=== PATIENT | male | born 1965 | race Caucasian/White ===

== ENCOUNTER → 2018-03-17 14:59 | Outpatient (CLI) | payer BC, SELFPAY ==
--- NOTE | 2018-03-17 15:01 | XR_ITS ---
XR finger LT min 2V CLINICAL INDICATION: ITS.REASON: MIDDLE LT BRENNA KELLY FINGER ORDERING PHYSICIAN: Carroll Pugh MD PATIENT AGE: 53 years FINDINGS: 3 views are obtained with an overlying splint in place with good alignment and no obvious fracture or other significant anomalies. Finger is fixed in extension. IMPRESSION: Splint in place otherwise negative
== END ==
PROVIDERS: PCP Family Medicine; Visit Provider Orthopaedic Surgery
DX: M20.012 Mallet finger of left finger(s) (principal)
CPT/HCPCS: 73140

== ENCOUNTER → 2021-07-06 08:25 | Outpatient (CLI) | payer BC, SELFPAY | PROVIDERS: Visit Provider Internal Medicine Gastroenterology | DX: Z01.812 Encounter for preprocedural laboratory examination (principal); Z11.52 Encounter for screening for COVID-19; Z13.810 Encounter for screening for upper gastrointestinal disorder; Z12.11 Encounter for screening for malignant neoplasm of colon | CPT/HCPCS: U0003 ==

== ENCOUNTER 2021-07-08 09:47 | Day surgery (SDC) | payer BC, SELFPAY ==
[2021-07-03 12:54] VITALS: BMI 29.1
[2021-07-08 10:20] VITALS: BP 131/79; PULSE 83; RESP 16; TEMP 36.4; O2SAT 96
[2021-07-08 11:13] VITALS: O2SAT 100
--- NOTE | 2021-07-08 11:15 | P.PN_ITS ---
[facility] Anesthesia Checklist - Patient Identification Patient Identification: Arm Band - Structural Data Admitted From: Home Planned Operative Procedure/s: egd/colonoscopy Consent for Planned Operative Procedure(s) Verified: Yes Verified Documents: Surgical Consent, History and Physical - NPO Status Verified Time NPO: 00:00 - Additional verifications Anesthesia Reactions: No - Airway Assessment C-Spine Mobility Assessed: Yes (mp2) TMJ Mobility Assessed: Yes Dentition: Good Dentition - Neurological Assessment Level of Consciousness: Awake, Alert - Anesthesia Plan Anesthesia Risk discussed: Yes Anesthesia Plan: Verified ASA Class: II Anesthesia Type: MAC [facility] History I have reviewed the patient's past medical history: Yes Medical History: Reports:: Gastroesophageal Reflux Disease(GERD), Hypertension Denies:: Cancer, Diabetes Mellitus Type 1, Diabetes Mellitus Type 2, Internal Pacemaker, MRSA, Seizures *Have you ever received a pneumonia vaccine?: No *Have you received a flu vaccine this season?: No Anesthesia experience/problems:: nac Laterality Cases: Right: Arthroscopy Knee Other Surgeries: Yes: Sinus Surgery. No: Pacemaker Amputation: No Fractures: No - *Social History Last grade of school completed: Some college Smoking Status: Current every day smoker Tobacco Type: smokeless tobacco # Packs/Day (cigarettes): 2 Alcohol Intake: current Alcohol Intake Frequency:: a few times a week Substance Use Type: denies use *Occupational Status:: employed Housing: house Household Members: spouse, children *Travel in the last 8 weeks: Inside the [facility] Family Hx:: Coronary Artery Disease, Diabetes, Hypertension
--- NOTE | 2021-07-08 11:33 | HMH.PROC ---
[facility] Procedure Note Procedure Note:: Upper Endoscopy Procedure Report: Esophagogastroduodenoscopy with cold biopsies Endoscopost: Bright Webster II, MD Referring Physician: NINFA Heard Date of Procedure: July 08, 2021 Equipment: Olympus GIF 190 standard upper endoscope Sedation: MAC sedation Indications: Mr. Campos is a 56-year-old gentleman with chronic intermittent reflux for which he has taken lansoprazole a couple of times per month. He reports no daily heartburn or reflux. He reports no indigestion, bloating, epigastric discomfort or dyspepsia. He has had no dysphagia. This is his first upper endoscopy. Procedure: Prior to the procedure, a history and physical exam was performed, and patient's medications and allergies were reviewed. The risks, benefits and alternatives of the sedation and procedure were discussed with the patient. All questions were answered and informed consent was obtained. The patient was brought to the procedure room. Patient identification and proposed procedure were verified by the physician and the nurse. The patient was placed in a left lateral decubitus position and the scope was passed under direct vision. Throughout the procedure, the patient's blood pressure, pulse, and oxygen saturations were monitored continuously. The upper GI endoscopy was accomplished without difficulty. The patient tolerated the procedure well. Findings: The scope was passed directly into the upper esophagus and advanced to the third portion of the duodenum. The post bulbar duodenum and duodenal bulb were normal with normal mucosa and conniventes. The scope was withdrawn through a normal duodenal bulb and pylorus into the stomach. There was mild antral reactive gastropathy with bile reflux. The remainder of the body and fundus of the stomach were grossly normal. Upon retroflexion there was a very small sliding 1 to 2 cm hiatal hernia. 2 biopsies were taken in the antrum and along the lesser curvature for histology to rule out gastritis and/or H pylori. The scope was then withdrawn into the esophagus. There was grade A reflux esophagitis (LA classification). Biopsies were taken at the GE junction to rule out intestinal metaplasia. The remainder of the esophageal mucosa was normal. Impression: 1. Grade A reflux esophagitis (LA classification) with small sliding hiatal hernia 2. Bile reflux with mild reactive gastropathy Plan: The patient does have mild reflux esophagitis. I will follow-up the biopsies and if his biopsies of the GE junction confirm intestinal metaplasia, I would consider a long-term daily low-dose PPI therapy (omeprazole 20 mg p.o. daily) for complicated GERD. I will proceed with screening colonoscopy.
--- NOTE | 2021-07-08 11:53 | HMH.PROC ---
[facility] Procedure Note Procedure Note:: Colonoscopy Procedure Report: Colonoscopy with cold snare polypectomy Endoscopist: Bright Webster II, MD Referring physician: NINFA Heard Date of Procedure: July 08, 2021 Equipment: Olympus 190 variable stiffness pediatric colonoscope Sedation: MAC sedation Indication: Mr. Campos is a 56-year-old gentleman who is here for initial screening colonoscopy. He reports no abdominal pain, weight loss, change in his bowel habits or rectal bleeding. He reports no family history of colon cancer. He does state that his [id number] (not genetic relation) has colon cancer. Procedure: Prior to the procedure, a history and physical exam was performed, and patient's medications and allergies were reviewed. The risks, benefits and alternatives of the sedation and procedure were discussed with the patient. All questions were answered and informed consent was obtained. The patient was brought to the procedure room. Patient identification and proposed procedure were verified by the physician and the nurse. The patient was placed in a left lateral decubitus position and the scope was passed under direct vision. Throughout the procedure, the patient's blood pressure, pulse, and oxygen saturations were monitored continuously. The colonoscopy was accomplished without difficulty. The patient tolerated the procedure well. Findings: On digital rectal examination there was normal rectal tone. There were no external hemorrhoids. The prostate was 2+, mildly firm but symmetric without nodules. The colonoscope was introduced through the anal canal to the rectum and advanced to the cecum. The ileocecal valve and appendiceal orifice were identified. The scope was advanced a short distance into the ileum which appeared grossly normal. The scope was then withdrawn into the colon. The cecum, ascending and transverse colon and mucosa were grossly normal. There was a diminutive 3 to 4 mm polyp in the descending colon removed via cold snare polypectomy. There were mildly scattered diverticuli throughout the descending and sigmoid colon (LEFT colon). The rectum itself was normal. Upon retroflexion within the rectum there were grade 1-2 internal hemorrhoids. The preparation was excellent throughout with [place] Preparation Score of 9. The cecal time was 12 minutes. Impression: 1. Diminutive descending colon polyp 2. Mild left-sided diverticulosis 3. Grade 1-2 internal hemorrhoids Plan: I will follow up the polyp pathology and recommend repeat colonoscopy again in 7-10 years based upon the polyp histology. I would encourage bulking fiber supplementation (Metamucil) on a long-term daily maintenance basis.
[2021-07-08 11:55] VITALS: BP 106/69; PULSE 82; RESP 18; TEMP 36.6; O2SAT 94
[2021-07-08 12:05] VITALS: BP 118/76; PULSE 85; RESP 18; O2SAT 95
[2021-07-08 12:15] VITALS: BP 109/79; PULSE 72; RESP 18; O2SAT 95
[2021-07-08 12:28] VITALS: BP 113/76; PULSE 80; RESP 18; O2SAT 96
== END 2021-07-08 12:38 | disposition home or self-care (01) ==
LOC: OUTP 09:48
PROVIDERS: PCP Nurse Practitioner Family; Visit Provider Internal Medicine Gastroenterology
PROC: 0DJ08ZZ Inspection of Upper Intestinal Tract, Via Natural or Artificial Opening Endoscopic (ICD-10-PCS; CPT 43235; principal; 2021-07-08 11:00)
DX: Z12.11 Encounter for screening for malignant neoplasm of colon (principal); K21.00 Gastro-esophageal reflux disease with esophagitis, without bleeding; K31.9 Disease of stomach and duodenum, unspecified; K44.9 Diaphragmatic hernia without obstruction or gangrene; K63.5 Polyp of colon; K57.32 Diverticulitis of large intestine without perforation or abscess without bleeding; K64.0 First degree hemorrhoids; I10 Essential (primary) hypertension; Z72.0 Tobacco use; Z83.3 Family history of diabetes mellitus; Z82.49 Family history of ischemic heart disease and other diseases of the circulatory system; Z79.899 Other long term (current) drug therapy
CPT/HCPCS: 43239; 45385

== ENCOUNTER → 2022-04-23 12:34 | Outpatient (CLI) | payer BC, SELFPAY ==
--- NOTE | 2022-04-23 12:39 | XR_ITS ---
FINAL REPORT CLINICAL HISTORY: knee pain, hx meniscus surgery FINDINGS: RIGHT KNEE: Three views of the right knee were obtained. There is no acute fracture or dislocation. There are mild degenerative changes. There is no joint effusion. Soft tissues are unremarkable. IMPRESSION: Mild degenerative change. Reviewed, Interpreted and Dictated by Parker Copeland III, MD Transcribed by Jaun Redmond Authenticated and . [facility]
== END ==
PROVIDERS: PCP Nurse Practitioner Family; Visit Provider Nurse Practitioner Family
DX: M25.561 Pain in right knee (principal)
CPT/HCPCS: 73562

== ENCOUNTER → 2022-04-30 08:41 | Outpatient (CLI) | payer BC, SELFPAY ==
--- NOTE | 2022-04-30 08:42 | MR_ITS ---
FINAL REPORT CLINICAL HISTORY: right lateral knee pain. hx meniscus sx 15 years ago FINDINGS: Multiplanar MR imaging of the right knee was performed without contrast. There is postoperative change from partial medial meniscectomy. There is a probable small tear involving the posterior horn of the lateral meniscus. Finding is well seen on series 4, image 11. There is fluid in the anterior cruciate ligament, may represent mucinous degeneration. The posterior cruciate ligament is intact. The medial collateral ligament and lateral ligamentous complex are intact. The patellar and quadriceps tendons are intact. There are small osteochondral lesions of the medial femoral condyle and medial tibial plateau. There is mild degenerative change with moderate to severe medial compartment chondromalacia. Small joint effusion is seen. The musculature is intact. Small popliteal cyst is identified. IMPRESSION: Probable small tear posterior horn lateral meniscus. Degenerative change and chondromalacia. Osteochondral lesions of the medial femoral condyle and medial tibial plateau. Reviewed, Interpreted and Dictated by Parker Copeland III, MD Transcribed by Stephie Peng Authenticated and [facility]
== END ==
PROVIDERS: PCP Nurse Practitioner Family; Visit Provider Nurse Practitioner Family
DX: M25.561 Pain in right knee (principal)
CPT/HCPCS: 73721

== ENCOUNTER → 2022-05-19 08:38 | Outpatient (CLI) | payer BC, SELFPAY ==
--- NOTE | 2022-05-19 09:01 | ECG_ITS ---
APPROVED REPORT Exam: Resting ECG HR:65 bpm ECG Measurements Heart Rate 65 AXES MD 111 P 65 QRSd 99 QRS 69 QT 391 T 37 QTc 402 Conclusion SINUS RHYTHM WITH SHORT MD INTERVAL BORDERLINE ECG UNCONFIRMED REPORT Electronically signed by : Giovanni Mendoza MD 05/19/2022 21:43:31
[2022-05-19 09:12] LABS: Basophils # 0.2 K/mm3 (0-0.2); Basophils % 2.8 % (0.1-2.0); Eosinophils # 0.1 K/mm3 (0.0-0.4); Eosinophils % 1.7 % (0.1-12.0); Hemoglobin 14.9 g/dL (14.1-18.0); Lymphocytes % 16.6 % (10-50); Mean Corpuscular HGB Conc 31.8 g/dL (31.8-35.4); Mean Corpuscular Hemoglobin 33.2 pg (27.0-31.2); Mean Corpuscular Volume 104.5 fl (80-94); Mean Platelet Volume 8.1 fl (7.4-10.4); Monocytes # 0.4 K/mm3 (0.1-1.0); Monocytes % 7.3 % (1.7-9.3); Neutrophils # 4.2 K/mm3 (1.8-7.8); Neutrophils % 71.5 % (37.0-80.0); Platelet Count 305 K/mm3 (142-424); Red Blood Count 4.49 M/mm3 (4.60-6.20); Red Cell Distribution Width 12.8 % (11.5-17.5); White Blood Count 5.8 K/mm3 (4.8-10.8)
[2022-05-19 09:29] LABS: Chloride 103 mmol/L (98-107); Potassium 4.2 mmoL/L (3.5-5.1); Sodium 138 mmol/L (136-145)
[2022-05-19 09:32] LABS: Anion Gap 10.2 mEq/L (5-15); Blood Urea Nitrogen 17 mg/dl (9-20); Carbon Dioxide 29 mmol/L (22.0-30.0); Estimated Glomerular Filt Rate 87 ml/min (>60); GFR (African American) 106 ML/MIN (>60)
[2022-05-19 09:33] LABS: Calcium 9.4 mg/dl (8.4-10.2); Glucose 109 mg/dl (74-100)
== END ==
PROVIDERS: PCP Nurse Practitioner Family; Visit Provider Orthopaedic Surgery
DX: Z01.818 Encounter for other preprocedural examination (principal); Z20.822 Contact with and (suspected) exposure to COVID-19
CPT/HCPCS: 36415; 80048; 85025; 93005; C9803; U0003; U0005

== ENCOUNTER 2024-02-18 11:04 | Outpatient (CLI) | payer BC, SELFPAY ==
--- NOTE | 2024-02-18 11:10 | XR_ITS ---
FINAL REPORT CLINICAL HISTORY: LOW BACK PAIN COMPARISON: None FINDINGS: LUMBOSACRAL SPINE SERIES Five views of the lumbosacral spine were obtained. There is no fracture present. The vertebrae are normal in height. There is no malalignment. There is mild disc space narrowing at L2-3. There is mild anterior osteophyte formation. IMPRESSION: Mild degenerative changes without acute process. Reviewed, Interpreted and Dictated by Denny Nunez MD Transcribed by Laine Jackson Authenticated and . [facility]
== END 2024-02-18 23:59 ==
LOC: RAD 11:07
PROVIDERS: PCP Nurse Practitioner Family; Visit Provider Nurse Practitioner Family
DX: M54.50 Low back pain, unspecified (principal)
CPT/HCPCS: 72110

== ENCOUNTER 2024-11-03 07:14 | Outpatient (CLI) | payer BC, SELFPAY ==
--- NOTE | 2024-11-03 07:16 | MR_ITS ---
FINAL REPORT CLINICAL HISTORY: LOW BACK PAIN. RIGHT HIP PAIN. NO INJURT OR TRAUMA FINDINGS: Multiplanar MR imaging of the lumbar spine was performed without contrast. On the sagittal T2-weighted images, multilevel disc degeneration and endplate changes are seen. There is mild rightward curvature. There is no evidence of fracture. No bony mass is identified. The conus is seen at approximately the L1 level and has an unremarkable appearance. T12-L1: Unremarkable. L1-2: There is an annular disc bulge without significant canal stenosis or neural foraminal narrowing. L2-3: Annular disc bulge with facet arthropathy and osteophytes. There is moderate bilateral neuroforaminal narrowing. L3-4: Annular disc bulge with facet arthropathy and osteophytes. There is moderate bilateral neuroforaminal narrowing. L4-5: Annular disc bulge with facet arthropathy. There is severe bilateral neuroforaminal narrowing. Moderate central canal stenosis is seen with AP diameter of the thecal sac measuring 6 mm. L5-S1: Annular disc bulge with facet arthropathy. There is partial lumbarization of S1 and severe bilateral neuroforaminal narrowing. A 5 mm synovial cyst is seen posterior to the facet joint on the left. IMPRESSION: Severe bilateral neuroforaminal narrowing and moderate central canal stenosis at L4-5. 5 mm synovial cyst posterior to the facet joint on the left at L5-S1 where there is partial embolization and severe bilateral neuroforaminal narrowing. Reviewed, Interpreted and Dictated by Parker Copeland III, MD Transcribed by Stacy Craft Authenticated and . [facility]
== END 2024-11-03 23:59 | disposition home or self-care (01) ==
LOC: RAD 07:14
PROVIDERS: PCP Nurse Practitioner Family; Visit Provider Nurse Practitioner Family
DX: M54.50 Low back pain, unspecified (principal)
CPT/HCPCS: 72148

== ENCOUNTER 2024-11-21 16:30 | Outpatient (RCR) | payer BC, SELFPAY | END 2024-11-21 23:59 | disposition home or self-care (01) | LOC: PT 16:30 | PROVIDERS: Visit Provider Neurological Surgery | DX: M54.16 Radiculopathy, lumbar region (principal) | CPT/HCPCS: 97110; 97163; 97530 ==

== ENCOUNTER 2024-12-22 09:00 | Outpatient (RCR) | payer BC, SELFPAY | END 2024-12-22 23:59 | disposition home or self-care (01) | LOC: PT 09:00 | PROVIDERS: Visit Provider Neurological Surgery | DX: M54.16 Radiculopathy, lumbar region (principal) | CPT/HCPCS: 97110; 97140; 97164; 97530 ==

== ENCOUNTER 2025-01-03 09:00 | Outpatient (RCR) | payer BC, SELFPAY | END 2025-01-03 23:59 | disposition home or self-care (01) | LOC: PT 09:00 | PROVIDERS: Visit Provider Neurological Surgery | DX: M54.16 Radiculopathy, lumbar region (principal) | CPT/HCPCS: 97110; 97530 ==

== ENCOUNTER 2025-02-23 09:11 | Outpatient (POV) | payer BC, SELFPAY ==
[2025-02-23 10:09] VITALS: BP 142/87; PULSE 82; RESP 18; O2SAT 96; BMI 29.8
--- NOTE | 2025-02-23 10:46 | EXP.PAIN.OV ---
HPI Data of Consult Patient: new to practice Consult date: 02/23/25 Requesting Physician: Sylvia Holden APRN Primary Care Provider: Demarcus Campos APRN Consult Narrative Reason for consult: Low back pain, hip pain History of present illness: Mr. Campos is a 60 year old male who presents today as a new patient. He is a referral from demarcus Campos's office. Today he rates his pain an 8 out of 10. Patient does state that he has had chronic low back pain that does primarily affect the right hip for longer than a year. He does believe this was more wear and tear and denies any specific injury or trauma. He does state that it is an aching sensation and denies any radiating symptoms into his legs. He states the pain is worse with standing or bending. He states the pain does interfere with his ability perform activities of daily living such as cooking and cleaning. Patient did complete physical therapy however it made no additional improvement. Patient was seen by neurosurgery in [place] who was not recommending surgical intervention. Patient has also gone to the chiropractor on a regular basis and does state this helps but typically only last about a day. Patient has tried oral medications, heat and ice and topicals with minimal improvement. Patient has also continued home stretching and exercise for longer than 12 weeks that was physician guided with no additional changes. Patient denies any prior back surgery or injection history. Patient is interested in any help we may be able to provide. His Roderick has been reviewed and is appropriate. CC: Sylvia Holden APRN [facility] Disclaimer: The information contained in this section may have been updated after the patient was seen, as this information can be updated by other users. Medical History (Updated 02/23/25 @ 10:49 by Sylvia Holden APRN) HTN (hypertension), benign GERD (gastroesophageal reflux disease) Surgical History (Updated 02/23/25 @ 10:11 by Coby Walter RN) H/O sinus surgery H/O right knee surgery Family History (Updated 02/23/25 @ 10:11 by Coby Walter RN) Other Coronary artery disease Diabetes Hypertension Social History (Updated 02/23/25 @ 10:12 by Coby Walter RN) Smoking Status: Current every day smoker tobacco type: smokeless tobacco alcohol intake: current alcohol intake frequency: a few times a week substance use type: denies use current occupational status: retired Travel in the last 8 weeks: None household members: spouse and children housing: house current occupation: [employer] caffeine: Yes Contact w/someone who lives/traveled outside [place] past 30 days?: No Exposure to someone with infectious disease in past 14 days?: No Do you have a fever (greater than 100.4 F or 38 C)?: No Have you tested positive for COVID-19: No Exposed to someone with COVID-19 in past 14 days?: No Do you have a sore throat?: No Do you have a cough?: No Do you have any weakness?: No Are you experiencing any nausea/vomitting?: No Do you have any diarrhea?: No Are you experiencing any unusual bleeding?: No Do you have any muscle aches/pain?: No Do you have any abdominal pain?: No Are you experiencing loss of taste or smell?: No Review of Systems Review of Systems Review of systems:: pertinent systems reviewed and negative unless documented below Review of systems (narrative): Review of Systems: General: No recent weight changes, no fever, no sleep disturbances Respiratory: No cough, no shortness of air, no recurring pulmonary infections Cardiovascular/peripheral vascular: No chest pain, no palpitations, no edema, no shortness of breath Gastrointestinal: No new onset incontinence, normal bowel movements reported Genitourinary: No new onset incontinence Musculoskeletal: Low back pain, hip pain Psychiatric: [Normal mood/affect] Neurological: [Denies weakness in extremities], [denies balance issues] Meds Home Medications and Allergies Home Medications ?Medication ?Instructions ?Recorded ?Confirmed ?Type lansoprazole 30 mg capsule,delayed 30 mg PO DAILY GERD 04/24/21 02/23/25 History release ramipril 5 mg capsule 5 mg PO DAILY bp #90 caps 05/09/21 02/23/25 Rx fluticasone propionate 50 1 spray intranasal QDAY #9.9 mL 08/07/21 02/23/25 Rx mcg/actuation nasal spray,suspension (Flonase Allergy Relief) New Prescriptions to Start Prescriptions: Allergies Allergy/AdvReac Type Severity Reaction Status Date / Time No Known Allergies Allergy Verified 04/23/22 10:59 Objective Vital signs: Pulse Resp BP Pulse Ox O2 Del Method 82 18 142/87 H 96 Room Air 02/23/25 10:02/23/25 10:02/23/25 10:02/23/25 10:02/23/25 10:09 Narrative: Physical Exam: General: Alert and oriented x3, no acute distress, pleasant and cooperative Lungs: Respirations even and unlabored, symmetrical chest expansion Eyes: PERRL Musculoskeletal: Flexion and extension of lumbar [spine] somewhat guarded secondary to pain, [antalgic gait noted] positive Kemps test Neurological: Speech clear, no gross sensory deficit Additional findings Additional findings: FINDINGS: Multiplanar MR imaging of the lumbar spine was performed without contrast. On the sagittal T2-weighted images, multilevel disc degeneration and endplate changes are seen. There is mild rightward curvature. There is no evidence of fracture. No bony mass is identified. The conus is seen at approximately the L1 level and has an unremarkable appearance. T12-L1: Unremarkable. L1-2: There is an annular disc bulge without significant canal stenosis or neural foraminal narrowing. L2-3: Annular disc bulge with facet arthropathy and osteophytes. There is moderate bilateral neuroforaminal narrowing. L3-4: Annular disc bulge with facet arthropathy and osteophytes. There is moderate bilateral neuroforaminal narrowing. L4-5: Annular disc bulge with facet arthropathy. There is severe bilateral neuroforaminal narrowing. Moderate central canal stenosis is seen with AP diameter of the thecal sac measuring 6 mm. L5-S1: Annular disc bulge with facet arthropathy. There is partial lumbarization of S1 and severe bilateral neuroforaminal narrowing. A 5 mm synovial cyst is seen posterior to the facet joint on the left. IMPRESSION: Severe bilateral neuroforaminal narrowing and moderate central canal stenosis at L4-5. 5 mm synovial cyst posterior to the facet joint on the left at L5-S1 where there is partial embolization and severe bilateral neuroforaminal narrowing. Reviewed, Interpreted and Dictated by Parker Copeland III, MD Transcribed by Stacy Craft Authenticated and . [facility] Assessment and Plan *Assessment and plan (1) Degenerative disc disease, lumbar: Status: Acute Category: Medical Code(s): M51.369 - Other intervertebral disc degeneration, lumbar region without mention of lumbar back pain or lower extremity pain (2) Lumbar facet arthropathy: Status: Acute Category: Medical Code(s): M47.816 - Spondylosis without myelopathy or radiculopathy, lumbar region (3) Lumbar spondylosis: Status: Acute Category: Medical Code(s): M47.816 - Spondylosis without myelopathy or radiculopathy, lumbar region (4) Hip pain: Status: Acute Category: Medical Code(s): M25.559 - Pain in unspecified hip Plan Patient is experiencing significant pain in his low back that is worse with bending, twisting or lifting. Patient did have limited range of motion of his lumbar spine with a positive Kemps test during today's visit. I did discuss with the patient that I do believe he would benefit from a lumbar medial branch block. Risk and benefits were discussed with the patient and he would like to proceed forward with this plan of care. Patient has tried and failed conservative therapy including oral medications, heat and ice, topicals, at home stretching exercise for longer than 12 weeks that was physician guided. Patient has also completed physical therapy and chiropractor therapy with no additional changes patient has been experiencing chronic low back pain for years. Patient was counseled that if he does get significant relief with his first lumbar medial branch block that we will plan on repeating it with the plan to progress forward to a lumbar RFA at a later date. Patient agrees with this plan of care. I will order the patient a compounded cream. Patient will be scheduled for his first diagnostic lumbar medial branch block bilaterally L4-L5 and 5 through S1 under fluoroscopy. Patient has been instructed to contact the clinic with any concerns before the next appointment. Dr. Veliz has reviewed this note and agrees with this plan of care. This note was dictated using voice recognition software and make contain errors or omissions. All injections are used with Lidocaine, Bupivacaine and Depo Medrol. Occasionally urine drug screen is needed to verify patient's compliance with our office pain contract. This is ordered based off specific treatments related to chronic pain with the potential to abuse certain medications.
== END 2025-02-23 23:59 | disposition home or self-care (01) ==
LOC: SC.PAIN 09:13
PROVIDERS: PCP Nurse Practitioner Family; Visit Provider Nurse Practitioner Family
DX: M51.369 Other intervertebral disc degeneration, lumbar region without mention of lumbar back pain or lower extremity pain (principal); M47.816 Spondylosis without myelopathy or radiculopathy, lumbar region; M25.559 Pain in unspecified hip; Z73.89 Other problems related to life management difficulty; F17.220 Nicotine dependence, chewing tobacco, uncomplicated
CPT/HCPCS: 99202; G0463

== ENCOUNTER 2025-03-21 13:26 | Day surgery (SDC) | payer BC, SELFPAY ==
[2025-03-21 13:30] VITALS: BP 141/80; PULSE 84; RESP 16; TEMP 36.8; O2SAT 97; BMI 29.9
[2025-03-21 13:39] VITALS: BP 141/88; PULSE 72; PULSE 75; RESP 18; O2SAT 97
[2025-03-21] MEDS: LIDOCAINE 1% 5ML PF VIAL 5 ML (13:45)
[2025-03-21] MEDS: DEXAMETHASONE 10MG/ML 1ML VIAL 10 MG (13:45)
[2025-03-21] MEDS: BUPIVACAINE 0.25% 10ML INJ 25 MG IJ (13:46)
--- NOTE | 2025-03-21 13:55 | EXP.PAIN.PRO ---
Procedure Date: 03/21/25 Time: 13:50 Anesthesiologist:: Mateus Woodall CRNA Complications:: None Pre-procedure Diagnosis:: Degenerative disc lumbar spine multilevels. Lumbar radiculopathy. Lumbar facet arthropathy. Lumbar spondylosis. Post-procedure Diagnosis:: Same. Indications for Procedure:: Patient is a very pleasant 60-year-old male who comes our clinic today for ROUND ONE of lumbar medial branch blocks/facet injections of bilateral L4-5, L5-S1 level. Patient describes low lumbar back pain as constant, dull, aching. He reports difficulty with lumbar flexion, extension, left and right rotation. He rates his pain 7/10. Procedure Details:: Informed consent was obtained and the risk and benefits of the procedure was explained to the patient. Patient was taken to the procedure room where noninvasive monitors were placed, including noninvasive blood pressure cuff as well as pulse oximeter. The area over the lumbar spine was cleansed using chlorhexidine as a cleansing solution. I anesthetized the skin and subcutaneous tissues with 1% Lidocaine. I placed 22-gauge spinal needles into the facet joint/ medial branches of [L3-L4, L4-L5, and L5-S1] bilaterally. Needle placement was confirmed with fluoroscopy. After confirmation of needle placement, each site was injected with 1 mL of 1% lidocaine and 0.25 % Marcaine and 10 mg of Depo-Medrol. A total of 80 mg of depo medrol was used for bilateral medial branch blocks of [L3-L4, L4-L5, and L5-S1] bilaterally. Patient tolerated the procedure without difficulty. There were no complications. Plan and Disposition:: Patient was discharged without incident.
[2025-03-21 14:02] VITALS: BP 136/83; PULSE 73; RESP 16; O2SAT 98
== END 2025-03-21 14:02 | disposition home or self-care (01) ==
PROVIDERS: PCP Nurse Practitioner Family; Visit Provider Nurse Anesthetist, Certified Registered
DX: M47.816 Spondylosis without myelopathy or radiculopathy, lumbar region (principal); M51.369 Other intervertebral disc degeneration, lumbar region without mention of lumbar back pain or lower extremity pain
CPT/HCPCS: 64493; 64494; J1100

== ENCOUNTER 2025-04-06 11:16 | Outpatient (POV) | payer BC, SELFPAY ==
--- OUTSIDE RECORDS SUMMARY | 2025-04-06 11:19 | XMS_ITS | Data Portability ---
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 I studied his MRI L-spine from 11/03/2024, which reveals degenerative changes with central/lateral recess stenosis at L3/4 and severe bilateral L4/5 foraminal stenosis. These findings could certainly lead to radicular or pseudoclaudication symptoms, but he has isolated low back and right hip pain. Given the lack of significant radicular or pseudoclaudication symptoms, no surgery is indicated right now. I discussed this with him and discussed other conservative treatments, starting with physical therapy. Answered all of his questions. He seems pleased with the plan. I provided a referral for physical therapy. I discussed that he should return if he develops radicular or pseudoclaudication symptoms. [email or web address] Not available 11/09/2024 08:59:21 Plan of Treatment Reminders Order Date Submit Date Provider Last Modified By Organization Details Last Modified Time Details Appointments None record ed. Lab None record ed. Referral None record ed. Procedures None record ed. Surgeries None record ed. Imaging None record ed. Medication Orders None record ed. Patient TargetsNo targets recorded. Patient InstructionsNo instructions recorded. Reason for Referral None Reported. Medical Equipment None Reported. Allergies No known drug allergies Medications Name Sig Start Date Stop Date Status Note LastModified by Organization Details LastModified Time azithromyci n 250 mg tablet TAKE 2 TABLETS (500 MG) BY ORAL ROUTE ONCE DAILY FOR 1 DAY THEN 1 TABLET (250 MG) BY ORAL ROUTE ONCE DAILY FOR 4 DAYS 02/15 completed Not Available Not Available Not Available prednisone 20 mg tablet Take 1 tablet twice a day by oral route for 5 days. 04/14 completed Not Available Not Available Not Available hydrocodone 10 mg-acetamin ophen 325 mg tablet 07/22 completed Not Available Not Available Not Available dexamethaso ne sodium phosphate 4 mg/mL injection solution Inject 1 mL every day by intramusc ular route. 02/15 completed Not Available Not Available Not Available fluticasone propionate 50 mcg/actuati on nasal spray,suspe nsion 07/22 completed Not Available Not Available Not Available ramipril 5 mg capsule TAKE 1 CAPSULE BY MOUTH EVERY DAY FOR FOR BLOOD PRESSURE active Not Available Not Available No t Available Euflexxa 10 mg/mL (mw 2.4-3.6 million) intra-artic ular syringe 02/15 completed Not Available Not Available Not Available Vitals Date Recorded Body height Body mass index (BMI) Body weight Systolic blood pressure Diastolic blood pressure Provider Name and Address Organization Details Last Updated DateTime 11/09/2024 182.88 cm 29.2 kg/m2 34291.3 6 g 123 mm[Hg] 74 mm[Hg] Formerly named [facility] 08:42:52 Social History None recorded. Functional Status None recorded. Mental Status None recorded. Family History Relationship Description Onset Age of this Age Resolved Age Notes LastModified by Organization Details LastModified Time Unspecified Relation Diabetes mellitus [email or web address] Not available 08:43:08 Unspecified Relation Hypertensive disorder [email or web address] Not available 08:43:12 Medical History Condition Response Hypertension Y Immunizations Vaccine Type Date Status Note Provider Nam e and Address Organization Details Recorded Time COVID-19 vaccine, vector-nr, rS-Ad26, PF, 0.5 mL 02/27/2021 completed Zuly Hameed [facility] 11/07/2024 09:25:32 COVID-19 vaccine, vector-nr, rS-Ad26, PF, 0.5 mL [facility]07[facility] 09:25:32 Past Encounters Encounter ID Performer Location Encounter Start Date Encounter Closed Date Diagnosis/Indication Diagnosis SNOMED-CT Code Diagnosis ICD10 Code Diagnosis Note [id number] MARTA DIAZ MD NEUROSURG KATHY CARDOZA [facility] [address] [place] [address] 11/09/2024 08:07:56 11/10/2024 04:14:03 Low back pain 170719457 M54.50 Health Concerns Section Related Observation LastModified by Organization Detai ls LastModified Time None Recorded Concern Status LastModified by Organization Details LastModified Time None Recorded Advance Directives Directive None Recorded Payers Insurance Date Sequence Insurance Name Policy Number Policy Kidd Covered Member ID Kidd Member ID Guarantor Name 11/09/2024 1 [place] [id number] Kenneth Campos [id number] Kenneth Campos Notes Date Note Type Note Provider Name and Address Organization Details Recorded Time 11/09/2024 text/html Kenneth Campos is a 59-year-old man who presents with 1 year of chronic low back pain. Symptoms began spontaneously and have been refractory to chiropractic therapy and etit-kfo-[id number] medications. The pain comes and goes and is worse when he is bending forward and occasionally radiates to the right hip. He will also occasionally have some numbness along the right thigh. Otherwise no radicular symptoms. 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 MARTA DIAZ MD [address] [place] [address], [phone], [facility] 11/09/2024 08:59:56
[2025-04-06 11:37] VITALS: BP 127/77; PULSE 82; RESP 12; O2SAT 97; BMI 30.5
--- NOTE | 2025-04-06 12:04 | EXP.PAIN.SOA ---
[facility] Disclaimer: The information contained in this section may have been updated after the patient was seen, as this information can be updated by other users. Medical History HTN (hypertension), benign GERD (gastroesophageal reflux disease) Surgical History H/O sinus surgery H/O right knee surgery Family History Other Coronary artery disease Diabetes Hypertension Social History Smoking Status: Current every day smoker tobacco type: smokeless tobacco alcohol intake: current alcohol intake frequency: a few times a week substance use type: denies use current occupational status: other Travel in the last 8 weeks?: None household members: spouse and children housing: house current occupation: 3M caffeine: Yes PM Subjective & Objective Subjective Subjective:: Patient is a pleasant 60-year-old male who presents today for follow-up of his first lumbar medial branch block bilaterally L4-L5 and L5-S1 on 03/21/2025. Patient denies any new falls or injuries. Patient does state that he did initially get significant improvement while he was nice and of at least 80%. Patient does state that he feels like his movements are easier overall and the pain is not as severe. Patient does state that he would rate today more along the lines of 50% improvement ongoing. Patient did get the compounded cream and states that it does help a little. His Roderick has been reviewed and is appropriate. Review of Systems: General: No recent weight changes, no fever, no sleep disturbances Respiratory: No cough, no shortness of air, no recurring pulmonary infections Cardiovascular/peripheral vascular: No chest pain, no palpitations, no edema, no shortness of breath Gastrointestinal: No new onset incontinence, normal bowel movements reported Genitourinary: No new onset incontinence Musculoskeletal: Low back pain Psychiatric: [Normal mood/affect] Neurological: [Denies weakness in extremities], [denies balance issues] Pain at rest (0-10 scale): 4 Objective Objective:: Physical Exam: General: Alert and oriented x3, no acute distress, pleasant and cooperative Lungs: Respirations even and unlabored, symmetrical chest expansion Eyes: PERRL Musculoskeletal: Flexion and extension of lumbar [spine] within normal limits Neurological: Speech clear, no gross sensory deficit Has patient had previous pain injection?: Yes Percent improvement in pain since last injection: 80% initially Conservative treatment options previously tried: Home exercise plan Length of treatment: Longer than 12 weeks Meds Home Medications and Allergies Home Medications ?Medication ?Instructions ?Recorded ?Confirmed ?Type lansoprazole 30 mg capsule,delayed 30 mg PO DAILY GERD 04/24/21 04/06/25 History release ramipril 5 mg capsule 5 mg PO DAILY bp #90 caps 05/09/21 04/06/25 Rx fluticasone propionate 50 1 spray intranasal QDAY #9.9 mL 08/07/21 04/06/25 Rx mcg/actuation nasal spray,suspension (Flonase Allergy Relief) New Prescriptions to Start Prescriptions: Allergies Allergy/AdvReac Type Severity Reaction Status Date / Time No Known Allergies Allergy Verified 04/23/22 10:59 Assessment and Plan *Assessment and plan (1) Lumbar facet arthropathy: Status: Acute Category: Medical Code(s): M47.816 - Spondylosis without myelopathy or radiculopathy, lumbar region (2) Lumbar spondylosis: Status: Acute Category: Medical Code(s): M47.816 - Spondylosis without myelopathy or radiculopathy, lumbar region (3) Degenerative disc disease, lumbar: Status: Acute Category: Medical Code(s): M51.369 - Other intervertebral disc degeneration, lumbar region without mention of lumbar back pain or lower extremity pain Plan Patient has had significant improvement following his first lumbar medial branch block and does not require any additional injection therapy at this time. Patient will return to clinic in 1 month. Patient has been instructed to contact the clinic with any concerns before the next appointment. Dr. Veliz has reviewed this note and agrees with this plan of care. This note was dictated using voice recognition software and make contain errors or omissions. All injections are used with Lidocaine, Bupivacaine and dexamethasone. Occasionally urine drug screen is needed to verify patient's compliance with our office pain contract. This is ordered based off specific treatments related to chronic pain with the potential to abuse certain medications.
== END 2025-04-06 23:59 | disposition home or self-care (01) ==
LOC: SC.PAIN 11:18
PROVIDERS: PCP Nurse Practitioner Family; Visit Provider Nurse Practitioner Family
DX: M47.816 Spondylosis without myelopathy or radiculopathy, lumbar region (principal); M51.369 Other intervertebral disc degeneration, lumbar region without mention of lumbar back pain or lower extremity pain; F17.290 Nicotine dependence, other tobacco product, uncomplicated
CPT/HCPCS: 99212; G0463

== ENCOUNTER 2025-05-04 10:53 | Outpatient (POV) | payer BC, SELFPAY ==
--- NOTE | 2025-05-04 11:09 | EXP.PAIN.SOA ---
[facility] Disclaimer: The information contained in this section may have been updated after the patient was seen, as this information can be updated by other users. Medical History HTN (hypertension), benign GERD (gastroesophageal reflux disease) Surgical History H/O sinus surgery H/O right knee surgery Family History Other Coronary artery disease Diabetes Hypertension Social History Smoking Status: Current every day smoker tobacco type: smokeless tobacco alcohol intake: current alcohol intake frequency: a few times a week substance use type: denies use current occupational status: other Travel in the last 8 weeks?: None household members: spouse and children housing: house current occupation: 3M caffeine: Yes PM Subjective & Objective Subjective Subjective:: Patient is a pleasant 60-year-old male who presents today for 1 month follow-up. Today he rates his pain a 3 out of 10. Patient denies any new trauma or injury from his last appointment. Patient did previously had his first lumbar medial branch block bilaterally L4-L5 and L5-S1 on 03/21/2025 that did provide 80% initially. He does feel like this is still helping. He states he will occasionally have worse pain on some days but does feel like overall it is still manageable. Patient does state that he when he has had some additional pain and has felt a little bit lower on the right side. His Roderick has been reviewed and is appropriate. Review of Systems: General: No recent weight changes, no fever, no sleep disturbances Respiratory: No cough, no shortness of air, no recurring pulmonary infections Cardiovascular/peripheral vascular: No chest pain, no palpitations, no edema, no shortness of breath Gastrointestinal: No new onset incontinence, normal bowel movements reported Genitourinary: No new onset incontinence Musculoskeletal: Low back pain Psychiatric: [Normal mood/affect] Neurological: [Denies weakness in extremities], [denies balance issues] Pain at rest (0-10 scale): 3 Objective Objective:: Physical Exam: General: Alert and oriented x3, no acute distress, pleasant and cooperative Lungs: Respirations even and unlabored, symmetrical chest expansion Eyes: PERRL Musculoskeletal: Flexion and extension of lumbar [spine] somewhat guarded secondary to pain, [antalgic gait noted] Neurological: Speech clear, no gross sensory deficit Has patient had previous pain injection?: No Conservative treatment options previously tried: Home exercise plan Length of treatment: Longer than 12 weeks Meds Home Medications and Allergies Home Medications ?Medication ?Instructions ?Recorded ?Confirmed ?Type lansoprazole 30 mg capsule,delayed 30 mg PO DAILY GERD 04/24/21 04/06/25 History release ramipril 5 mg capsule 5 mg PO DAILY bp #90 caps 05/09/21 04/06/25 Rx fluticasone propionate 50 1 spray intranasal QDAY #9.9 mL 08/07/21 04/06/25 Rx mcg/actuation nasal spray,suspension (Flonase Allergy Relief) New Prescriptions to Start Prescriptions: Allergies Allergy/AdvReac Type Severity Reaction Status Date / Time No Known Allergies Allergy Verified 04/23/22 10:59 Assessment and Plan *Assessment and plan (1) Lumbar facet arthropathy: Status: Acute Category: Medical Code(s): M47.816 - Spondylosis without myelopathy or radiculopathy, lumbar region (2) Degenerative disc disease, lumbar: Status: Acute Category: Medical Code(s): M51.369 - Other intervertebral disc degeneration, lumbar region without mention of lumbar back pain or lower extremity pain Plan Patient is still getting significant relief following his first lumbar medial branch block and does not require any additional injection therapy at this time. Patient will return to clinic in 3 months. Patient has been instructed to contact the clinic with any concerns before the next appointment. Dr. Veliz has reviewed this note and agrees with this plan of care. This note was dictated using voice recognition software and make contain errors or omissions. All injections are used with Lidocaine, Bupivacaine and dexamethasone. Occasionally urine drug screen is needed to verify patient's compliance with our office pain contract. This is ordered based off specific treatments related to chronic pain with the potential to abuse certain medications.
--- OUTSIDE RECORDS SUMMARY | 2025-05-04 13:01 | XMS_ITS | Data Portability ---
Author Organization formerly [facility] Address [address] [place] [address] Care Team Providers Care Steel Welder Name Role Phone DANI CAMPOSJames Primary Care Provider Assessment No assessment recorded. Plan of Treatment Reminders Order Date Submit Date Provider Last Modified By Organization Details Last Modified Time Details Appointments None recorded. Lab TSH + free T4, serum 2023 024 JEFFERY [facility], [address], [place], [place], [address], 4 08:12:05 CBC w/ auto diff 2023 024 JEFFERY [facility], [address], [place], [place], [address], 4 08:12:06 CMP, serum or plasma 2023 024 JEFFERY [facility], [address], [place] [address], [place], [address], 4 08:12:07 lipid panel, serum 2023 024 JEFFERY [facility], [address], [place], [place], [address], 4 08:12:08 Referral neurologica l surgeon referral 2023 024 JEFFERY Mcmullen MD, [facility] [place], [address], 4 09:00:23 Procedures None recorded. Surgeries None recorded. Imaging MRI, lumbar spine, w/o contrast 2023 024 [facility] (Scheduling), [address] [place] [address], [place], [address], 4 11:34:41 XR, lumbar spine 2023 024 [facility] (X-Ray), [address] [place] [address] [address], [place], [address], 4 16:57:44 Medication Orders prednisone 20 mg tablet 2024 025 [facility], [address] [place] [address], [address], [place], [address], 5 10:14:07 dexamethaso ne sodium phosphate 4 mg/mL injection solution 2024 025 bstears Not available 5 10:57:17 ketorolac 30 mg/mL (1 mL) injection solution 2024 025 bstears Not available 5 10:58:43 dexamethaso ne sodium phosphate 4 mg/mL injection solution 2023 024 bstears Not available 5 09:29:14 ramipril 5 mg capsule 2023 024 [id number], [address] [place], [address], 4 16:16:39 Patient TargetsNo targets recorded. Patient Instructions Encounter Date Encounter Id Patient Instructions Last Modified By Organization Details Last Modified Time 02/16/2024 [id number] learning about healthy weight efryman Not available 02/16/2024 15:14:40 body mass index: care instructions efryman Not available 02/16/2024 15:14:40 10/13/2024 [id number] learning about healthy weight efryman Not available 10/13/2024 16:16:38 body mass index: care instructions wilian Not available 10/13/2024 16:16:38 Reason for Referral Neurological Surgeon Referra l for Low back pain Referring Physician: Evangelist Campos, Family Medicine, Encounter Date: 11/04/2024 Results Created Date Observation Date Name Description Value Unit Range Abnormal Flag Note LastModifiedBy Organization Detail LastModifiedTime 02/16/2002/17/2024 TSH+F REE T4 TSH 1.120 uIU/m L 0.450- 4.500 Not Available [facility] ([facility]) [address] [place], [address], 02/17/2024 08:12:05 02/16/2002/17/2024 TSH+F REE T4 T4,free(dire ct) 1.00 NG/dL 0.82-1 .77 Not Available [facility] ([facility]) [address] [place], [address], 02/17/2024 08:12:05 02/16/20 24 02/17/2024 CBC WITH DIFFE RENTI AL/PL ATELE T WBC 5.7 x10e3 /uL 3.4-10 .8 Not Available [facility] ([facility]) [address] [place], [address], 02/17/2024 08:12:06 02/16/20 24 02/17/2024 CBC WITH DIFFE RENTI AL/PL ATELE T RBC 4.73 x10e6 /uL 4.14-5 .80 Not Available [facility] ([facility]) [address] [place], [address], 02/17/2024 08:12:06 02/16/20 24 02/17/2024 CBC WITH DIFFE RENTI AL/PL ATELE T hemoglobin 14.9 g/dL 13.0-1 7.7 Not Available [facility] ([facility]) [address] [place], [address], 02/17/2024 08:12:06 02/16/20 24 02/17/2024 CBC WITH DIFFE RENTI AL/PL ATELE T hematocrit 44.2 % 37.5-5 1.0 Not Available [facility] ([facility]) [address] [facility], [place], [address], 02/17/2024 08:12:06 02/16/20 24 02/17/2024 CBC WITH DIFFE RENTI AL/PL ATELE T MCV 93 fL 79-97 Not Available [facility] ([facility]) [address] [facility], [place], [address], 02/17/2024 08:12:06 02/16/20 24 02/17/2024 CBC WITH DIFFE RENTI AL/PL ATELE T MCH 31.5 pg 26.6-3 3.0 Not Available [facility] ([facility]) [address] [facility], [place], [address], 02/17/2024 08:12:06 02/16/20 24 02/17/2024 CBC WITH DIFFE RENTI AL/PL ATELE T MCHC 33.7 g/dL 31.5-3 5.7 Not Available [facility] ([facility]) [address] [facility], [place], [address], 02/17/2024 08:12:06 02/16/20 24 02/17/2024 CBC WITH DIFFE RENTI AL/PL ATELE T RDW 12.2 % 11.6-1 5.4 Not Available [facility] ([facility]) [address] [place], [address], 02/17/2024 08:12:06 02/16/20 24 02/17/2024 CBC WITH DIFFE RENTI AL/PL ATELE T platelets 284 x10e3 /uL 150-45 0 Not Available [facility] ([facility]) [address] [facility], [place], [address], 02/17/2024 08:12:06 02/16/20 24 02/17/2024 CBC WITH DIFFE RENTI AL/PL ATELE T neutrophils 63 % not estab. Not Available [facility] ([facility]) [address] [facility], [place], [address], 02/17/2024 08:12:06 02/16/20 24 02/17/2024 CBC WITH DIFFE RENTI AL/PL ATELE T lymphs 24 % not estab. Not Available [facility] ([facility]) [address] [facility], [place], [address], 02/17/2024 08:12:06 02/16/20 24 02/17/2024 CBC WITH DIFFE RENTI AL/PL ATELE T monocytes 10 % not estab. Not Available [facility] ([facility]) [address] [facility], [place], [address], 02/17/2024 08:12:06 02/16/20 24 02/17/2024 CBC WITH DIFFE RENTI AL/PL ATELE T eos 1 % not estab. Not Available [facility] ([facility]) [address] [facility], [place], [address], 02/17/2024 08:12:06 02/16/20 24 02/17/2024 CBC WITH DIFFE RENTI AL/PL ATELE T basos 1 % not estab. Not Available [facility] ([facility]) [address] [facility], [place], [address], 02/17/2024 08:12:06 02/16/20 24 02/17/2024 CBC WITH DIFFE RENTI AL/PL ATELE T immature cells CADDY PACKER Not Available [facility] ([facility]) [address] [facility], [place], [address], 02/17/2024 08:12:06 02/16/20 24 02/17/2024 CBC WITH DIFFE RENTI AL/PL ATELE T neutrophils (absolute) 3.7 x10e3 /uL 1.4-7. 0 Not Available [facility] ([facility]) [address] [facility], [place], [address], 02/17/2024 08:12:06 02/16/20 24 02/17/2024 CBC WITH DIFFE RENTI AL/PL ATELE T lymphs (absolute) 1.3 x10e3 /uL 0.7-3. 1 Not Available [facility] ([facility]) [address] [facility], [place], [address], 02/17/2024 08:12:06 02/16/20 24 02/17/2024 CBC WITH DIFFE RENTI AL/PL ATELE T monocytes(ab solute) 0.6 x10e3 /uL 0.1-0. 9 Not Available [facility] ([facility]) [address] [facility], [place], [address], 02/17/2024 08:12:06 02/16/20 24 02/17/2024 CBC WITH DIFFE RENTI AL/PL ATELE T eos (absolute) 0.1 x10e3 /uL 0.0-0. 4 Not Available [facility] ([facility]) [address] [facility], [place], [address], 02/17/2024 08:12:06 02/16/20 24 02/17/2024 CBC WITH DIFFE RENTI AL/PL ATELE T baso (absolute) 0.0 x10e3 /uL 0.0-0. 2 Not Available [facility] ([facility]) [address] [facility], [place], [address], 02/17/2024 08:12:06 02/16/20 24 02/17/2024 CBC WITH DIFFE RENTI AL/PL ATELE T immature granulocytes 1 % not estab. Not Available [facility] ([facility]) [address] [facility], [place], [address], 02/17/2024 08:12:06 02/16/20 24 02/17/2024 CBC WITH DIFFE RENTI AL/PL ATELE T immature grans (abs) 0.0 x10e3 /uL 0.0-0. 1 Not Available [facility] ([facility]) [address] [facility], [place], [address], 02/17/2024 08:12:06 02/16/20 24 02/17/2024 CBC WITH DIFFE RENTI AL/PL ATELE T NRBC CADDY PACKER Not Available [facility] ([facility]) [address] [facility], [place], [address], 02/17/2024 08:12:06 02/16/20 24 02/17/2024 CBC WITH DIFFE RENTI AL/PL ATELE T hematology comments: CADDY PACKER Not Available [facility] ([facility]) [address] [facility], [place], [address], 02/17/2024 08:12:06 02/16/20 24 02/17/2024 COMP. METAB OLIC PANEL (14) glucose 89 mg/dL 70-99 Not Available [facility] ([facility]) [address] [facility], [place], [address], 02/17/2024 08:12:07 02/16/20 24 02/17/2024 COMP. METAB OLIC PANEL (14) BUN 12 mg/dL 6-24 Not Available [facility] ([facility]) [address] [facility], [place], [address], 02/17/2024 08:12:07 02/16/20 24 02/17/2024 COMP. METAB OLIC PANEL (14) creatinine 0.92 mg/dL 0.76-1 .27 Not Available [facility] ([facility]) [address] [place], [address], 02/17/2024 08:12:07 02/16/20 24 02/17/2024 COMP. METAB OLIC PANEL (14) eGFR 96 mL/mi n/1.7 3 >59 Not Available [facility] ([facility]) [address] [facility], [place], [address], 02/17/2024 08:12:07 02/16/20 24 02/17/2024 COMP. METAB OLIC PANEL (14) BUN/creatini ne ratio 13 9-20 Not Available [facility] ([facility]) [address], [place], [address], 02/17/2024 08:12:07 02/16/20 24 02/17/2024 COMP. METAB OLIC PANEL (14) sodium 142 mmol/ L 134-14 4 Not Available [facility] ([facility]) [address], [place], [address], 02/17/2024 08:12:07 02/16/20 24 02/17/2024 COMP. METAB OLIC PANEL (14) potassium 4.4 mmol/ L 3.5-5. 2 Not Available [facility] ([facility]) [address], [place], [address], 02/17/2024 08:12:07 02/16/20 24 02/17/2024 COMP. METAB OLIC PANEL (14) chloride 102 mmol/ L 96-106 Not Available [facility] ([facility]) [address], [place], [address], 02/17/2024 08:12:07 02/16/20 24 02/17/2024 COMP. METAB OLIC PANEL (14) carbon dioxide, total 23 mmol/ L 20-29 Not Available [facility] ([facility]) [address], [place], [address], 02/17/2024 08:12:07 02/16/20 24 02/17/2024 COMP. METAB OLIC PANEL (14) calcium 9.7 mg/dL 8.7-10 .2 Not Available [facility] ([facility]) [address] [facility], [place], [address], 02/17/2024 08:12:07 02/16/20 24 02/17/2024 COMP. METAB OLIC PANEL (14) protein, total 6.8 g/dL 6.0-8. 5 Not Available [facility] ([facility]) [address], [place], [address], 02/17/2024 08:12:07 02/16/20 24 02/17/2024 COMP. METAB OLIC PANEL (14) albumin 4.5 g/dL 3.8-4. 9 Not Available [facility] ([facility]) [address], [place], [address], 02/17/2024 08:12:07 02/16/20 24 02/17/2024 COMP. METAB OLIC PANEL (14) globulin, total 2.3 g/dL 1.5-4. 5 Not Available [facility] ([facility]) [address] [place], [address], 02/17/2024 08:12:07 02/16/20 24 02/17/2024 COMP. METAB OLIC PANEL (14) A/G ratio 2.0 1.2-2. 2 Not Available [facility] ([facility]) [address] [place], [address], 02/17/2024 08:12:07 02/16/20 24 02/17/2024 COMP. METAB OLIC PANEL (14) bilirubin, total 0.7 mg/dL 0.0-1. 2 Not Available [facility] ([facility]) [address] [place], [address], 02/17/2024 08:12:07 02/16/20 24 02/17/2024 COMP. METAB OLIC PANEL (14) alkaline phosphatase 69 IU/L 44-121 Not Available [facility] ([facility]) [address], [place], [address], 02/17/2024 08:12:07 02/16/20 24 02/17/2024 COMP. METAB OLIC PANEL (14) AST (SGOT) 23 IU/L 0-40 Not Available [facility] ([facility]) [address] [facility] [place], [address], 02/17/2024 08:12:07 02/16/20 24 02/17/2024 COMP. METAB OLIC PANEL (14) ALT (SGPT) 41 IU/L 0-44 Not Available [facility] ([facility]) [address] [facility] [place], [address], 02/17/2024 08:12:07 02/16/20 24 02/17/2024 LIPID PANEL cholesterol, total 229 mg/dL 100-19 9 above high normal Not Available [facility] ([facility]) [address] [facility] [place], [address], 02/17/2024 08:12:08 02/16/20 24 02/17/2024 LIPID PANEL triglyceride s 107 mg/dL 0-149 Not Available [facility] ([facility]) [address] [facility] [place], [address], 02/17/2024 08:12:08 02/16/20 24 02/17/2024 LIPID PANEL HDL cholesterol 41 mg/dL >39 Not Available [facility] ([facility] [address] [facility] [place], [address], 02/17/2024 08:12:08 02/16/20 24 02/17/2024 LIPID PANEL VLDL cholesterol kira 19 mg/dL 5-40 Not Available [facility] ([facility]) [address] [facility] [place], [address], 02/17/2024 08:12:08 02/16/20 24 02/17/2024 LIPID PANEL LDL chol calc ([facility]) 169 mg/dL 0-99 above high normal Not Available [facility] ([facility]) [address] [place], [address], 02/17/2024 08:12:08 02/16/20 24 02/17/2024 LIPID PANEL comment: CADDY PACKER Not Available [facility] ([facility]) [address], [place], [address], 02/17/2024 08:12:08 02/18/20 24 02/18/2024 XR, lumba r spine No observ ation record ed. [facility] [address], [place], [address], 02/19/2024 14:23:56 11/03/20 24 11/03/2024 MRI, lumba r spine , w/o contr ast No observ ation record ed. [facility] [address], [place], [address], 11/04/2024 14:32:02 Result Notes None recorded. Problems Name Problem SNOMED Code Status Onset Date Resolution Date Notes Provider Name and Address Organization Details Recorded Time Hypertensive disorder 98772138 Active Swapna hernandez JAH - [facility] 17:29:51 Problem Notes None recorded. Procedures Surgical History Date Name Laterality Status Provider Name and Address Organization Details Recorded Time 05/18/20 22 Arthroscopic Surgery completed Swapna Riceler JAH - [facility] 07/22/2022 17:28:58 07/18/20 21 Colonoscopy completed Swapna Riceler JAH - [facility] 07/22/2022 17:28:58 Imaging Results None recorded. Procedure Notes None recorded. Medical Equipment None Reported. Allergies No known drug allergies Medications Name Sig Start Date Stop Date Status Note LastModified by Organization Details LastModified Time blood pressu solution kit 02/24 completed Not Available Not Available Not Available blood pressure monitoring solution kit 07/22 completed Not Available Not Available Not Available azithromyci n 250 mg tablet TAKE 2 TABLETS (500 MG) BY ORAL ROUTE ONCE DAILY FOR 1 DAY THEN 1 TABLET (250 MG) BY ORAL ROUTE ONCE DAILY FOR 4 DAYS 02/24 completed Not Available Not Available Not Available prednisone 20 mg tablet Take 1 tablet twice a day by oral route for 5 days. 2024 active Not Available Not Available Not Avai lable hydrocodone 10 mg-acetamin ophen 325 mg tablet 07/22 completed Not Available Not Available Not Available ketorolac 30 mg/mL (1 mL) injection solution Inject 15 mg as needed by intramusc ular route. 2024 active Not Available Not Available Not Avai lable dexamethaso ne sodium phosphate 4 mg/mL injection solution Inject 1 mL every day by intramusc ular route. 2024 active Not Available Not Available Not Avai lable fluticasone propionate 50 mcg/actuati on nasal spray,suspe nsion 07/22 completed Not Available Not Available Not Available ramipril 5 mg capsule TAKE 1 CAPSULE BY MOUTH EVERY DAY FOR BLOOD PRESSURE active Not Available Not Available No t Available Euflexxa 10 mg/mL (mw 2.4-3.6 million) intra-artic ular syringe 02/15 completed Not Available Not Available Not Available Vitals Date Recorded Body height Body mass index (BMI) Body weight Body temperature Heart rate Oxygen saturation Oxygen saturation in Arterial blood by Pulse oximetry Respiratory rate Systolic blood pressure Diastolic blood pressure Provider Name and Address Organization Details Last Updated DateTime 4 182.88 cm 31.9 kg/m2 422407. 21 g 96.8 [degF] 80 /min 98 % 98 % 18 /min 126 mm[Hg] 80 mm[Hg] Swapna Andrew [place] - [facility] 4 14:36:56 Date Recorded Body height Respiratory rate Body mass index (BMI) Body weight Body temperature Heart rate Oxygen saturation Oxygen saturation in Arterial blood by Pulse oximetry Systolic blood pressure Diastolic blood pressure Provider Name and Address Organization Details Last Updated DateTime 5 182.88 cm 18 /min 31.5 kg/m2 652284. 43 g 97.9 [degF] 76 /min 98 % 98 % 126 mm[Hg] 82 mm[Hg] Megan Scott [place] - [facility] 5 09:37:46 Date Recorded Body height Body mass index (BMI) Body weight Body temperature Heart rate Oxygen saturation Oxygen saturation in Arterial blood by Pulse oximetry Respiratory rate Systolic blood pressure Diastolic blood pressure Provider Name and Address Organization Details Last Updated DateTime 4 182.88 cm 30.4 kg/m2 839465. 39 g 97.9 [degF] 78 /min 97 % 97 % 18 /min 124 mm[Hg] 78 mm[Hg] Swapna Andrew [place] - [facility] 4 15:49:19 Date Recorded Body height Provider Name an d Address Organization Details Last Updated DateTime 11/04/2024 182.88 cm Swapna REBOLLAR - [facility] 1 01/05/2024 14:06:46 Date Recorded Body height Body mass index (BMI) Body weight Heart rate Oxygen saturation Oxygen saturation in Arterial blood by Pulse oximetry Respiratory rate Systolic blood pressure Diastolic blood pressure Provider Name and Address Organization Details Last Updated DateTime 4 182.88 cm 31.2 kg/m2 182405. 25 g 103 /min 98 % 98 % 18 /min 122 mm[Hg] 80 mm[Hg] Swapna REBOLLAR - [facility] 4 15:31:06 Social History Question Answer Notes LastModified by Organizat ion Details LastModified Time Tobacco Smoking Status Never Smoker Swapna hernandez, [place] - [facility] 07/22/2022 17:28:58 Do You Have An Advance Directive? Yes Information not available 07/22/2022 How Many Years Have You Consumed Alcohol? 15 Information not available 07/22/2022 Are You Blind Or Do You Have Difficulty Seeing? No Information not available 02/24/2025 Is Blood Transfusion Acceptable In An Emergency? Yes Information not available 07/22/2022 What Is Your Level Of Caffeine Consumption? Occasional Information not available 07/22/2022 How Much Tobacco Do You Chew? 1/day Information not available 07/22/2022 Are You Deaf Or Do You Have Serious Difficulty Hearing? No Information not available 07/22/2022 What Type Of Diet Are You Following? REGULAR Information not available 02/24/2025 Which Illicit Or Recreational Drugs Have You Used? None Information not available 07/22/2022 What Is The Highest Grade Or Level Of School You Have Completed Or The Highest Degree You Have Received? [id number] Information not available 07/22/2022 Have There Been Any Changes To Your Family Or Social Situation? No Information no t available 02/24/2025 What Is The Fluoride Status Of Your Home? Unknown Information not available 02/24/2025 How Many Years Have You Used Illicit Or Recreational Drugs? 0 Information not available 07/22/2022 Do You Have A Medical Power Of Plodder Operator? No Information not available 02/24/2025 What Was The Date Of Your Most Recent Tobacco Screening? 02/24/2025 Information not available 02/24/2025 Do You Use Protection During Sex? No Information not available 07/22/2022 Do You Use Protection Against STDs? No Information not available 07/22/2022 What Is Your Relationship Status? Information not available 07/22/2022 Do You Use Your Seat Belt Or Car Seat Routinely? Yes Information not available 07/22/2022 Are You Sexually Active? Yes Information not available 07/22/2022 Do You Have Smoke And Carbon Monoxide Detectors In Your Home? Yes Information not available 07/22/2022 Are You Passively Exposed To Smoke? Yes Information no t available 07/22/2022 Do You Use Sunscreen Routinely? No Information not available 07/22/2022 Has Tobacco Cessation Counseling Been Provided? No Information not available 01/19/2023 Do You Have Difficulty Walking Or Climbing Stairs? No Information not available 02/24/2025 Which Type Of Protection Is Used? None Information not available 07/22/2022 Sex: Male Functional Status Question Answer Note LastModified by Organizat ion Details LastModified Time Do you or have you ever used smokeless tobacco? Current snuff user Information not available 07/22/2022 Are you currently employed? Yes Information not available 07/22/2022 Do you have transportation difficulties? No Information not available 02/24/2025 Are you able to care for yourself? Yes Information n ot available 07/22/2022 Do you have difficulty dressing or bathing? No Information not available 02/24/2025 Do you or have you ever used e-cigarettes or vape? Never used electronic cigarettes Information not available 07/22/2022 What is your exercise level? Moderate Information not available 07/22/2022 Do you use any illicit or recreational drugs? No Information not available 02/24/2025 Do you or have you ever used any other forms of tobacco or nicotine? Yes Information not available 02/24/2025 What is your level of alcohol consumption? Occasional Information not available 07/22/2022 Are you able to walk? YESWOREST Information not available 02/24/2025 Do you have difficulty doing errands alone? No Information not available 02/24/2025 What is your occupation? [employer] Information not available 07/22/2022 Mental Status Question Answer Note LastModified by Organizat ion Details LastModified Time Do you feel stressed (tense, restless, nervous, or anxious, or unable to sleep at night)? [id number] Information not available 07/22/2022 Do you have difficulty concentrating, remembering or making decisions? No Information no t available 02/24/2025 Family History Relationship Description Onset Age of this Age Resolved Age Notes LastModified by Organization Details LastModified Time Mother Cerebrovascu lar accident cbuckler Not available 17:28:37 Father Diabetes mellitus cbuckler Not available 2021 17:28:37 Father Hypertensive disorder cbuckler Not available 2021 17:28:37 Medical History Condition Response Gout Y Hypertension Y Immunizations Vaccine Type Date Status Note Provider Nam e and Address Organization Details Recorded Time COVID-19 vaccine, vector-nr, rS-Ad26, PF, 0.5 mL 02/27/2021 completed JAH Contreras - [facility] 12/05/2022 11:21:34 COVID-19 vaccine, vector-nr, rS-Ad26, PF, 0.5 mL 11/07/2021 completed JAH Contreras - [facility] 12/05/2022 11:21:34 Past Encounters Encounter ID Performer Location Encounter Start Date Encounter Closed Date Diagnosis/Indication Diagnosis SNOMED-CT Code Diagnosis ICD10 Code Diagnosis Note [id number] Evangelist Campos APRN [address] [address] 07/22/2022 17:09:54 07/22/2022 18:07:53 Hypertensive [facility] 05967110 [id number] [place] [id number] [place] 08/05/2022 16:33:46 08/05/2022 17:13:14 Snoring symptoms 382419114 R06.83 Apnea 7267888 R06.81 [id number] [facility] [place] [id number] 12/05/2022 11:12:26 12/05/2022 11:39:48 Acute maxillary sinusitis 29780558 J01.00 [id number] [facility] [place] [id number] 01/19/2023 09:39:24 01/19/2023 10:45:31 Acute back pain with sciatica 773862750 M54.41 restheat icetylenol or motrinretu rn if symptoms continue or do not improve [id number] [facility] [address] [address] 04/14/2023 12:40:28 04/14/2023 14:30:57 Allergic rhinitis 00153060 J30.9 no sign of a bacterial infection. likely viral. viruses can take 7-14 days to run their course. nasal saline and bulb syringe to remove nasal drainage to help with congestion . monitor temp. Tylenol or Motrin as needed for pain or fever. encourage fluids, water, Gatorade, power aide, Pedialyte if infant/tod dler/child warm fluids sleep elevated humidifier /vaporizer follow up immediatel y for new or worsening symptoms or no noticeable improvemen t over the next 48-72 hours [id number] [facility] [address] [address] 02/16/2024 14:31:55 02/16/2024 15:26:07 Body mass index 30+ - obesity 148443052 Z68.31 Obesity 255922385 E66.9 Hypertensive disorder 38 003152 I10 Low back pain 758390131 M54.50 [id number] Evangelist aCmpos [address] [address] 10/13/2024 15:37:29 10/13/2024 16:13:35 Hypertensive disorder 69026370 I10 Body mass index 30+ - obesity 226947854 Z68.30 30.4 Obesity 162688859 E66.9 Low back pain 997944195 M54.50 will order mrixray showed degenerati ve changesfai led chiropract or interventi ons Degenerati on of lumbar intervertebral disc [id number] M51.543 [id number] [place] [id number] 1 11/04/2024 13:31:08 11/04/2024 14:38:00 Low back pain [id number] M54.50 failed chiropract or interventi ons MRI of lum bar spine abnormal [id number] R93.7 [id number] [facility] [place] [id number] 1 11/11/2024 15:09:59 11/11/2024 15:56:45 Acute maxillary sinusitis [id number] J01.00 continue zpak and flonase [id number] [facility] [address] [address] 02/24/2025 09:25:59 02/24/2025 10:09:41 Gouty arthritis of toe [id number] M10.9 restelevat edicestero idsnsaids Health Concerns Section Related Observation LastModified by Organization Detai ls LastModified Time None Recorded Concern Status LastModified by Organization Details LastModified Time None Recorded Advance Directives Directive Y: Payers Insurance Date Sequence Insurance Name Policy Number Policy Kidd Covered Member ID Kidd Member ID Guarantor Name 03/29/2025 1 [facility] ([place]) [id number] Eleni Campos [id number] Kenneth Campos Notes Date Note Type Note Provider Name and Address Organization Details Recorded Time 02/16/2024 text/html Back PainReporte d bypatient.Location: pain is not radiating Severity:improving Associated Symptoms:no fever; no weak limbs; no numbness of the legs/feet; no tingling; no incontinence; no shortness of breath; no unintentional weight loss; no chills; no night sweats; no gait instability; no bowel/bladder symptoms; no recent increase in stress Prior Imaging:none 59 yr old male presents for back pain that has been flaring up off and on for 5 months. He has been to the chiropractor and takes over the counter meds with relief but then after a couple days it flares back up.also needs labs for htn and obesity Evangelist Campos APRN [address], [place], [address], [place] - [facility] 02/16/2024 15:58:43 10/13/2024 text/html 59 yr old male presents for a follow up on hypertension and refill medication.Pt states low back pain with pain radiating into leg and hip. pt states he has been to chiropractor without any relief. pt states pain is worse and is now a constant pain. no loss of bowel or bladder Evangelist Campos APRN [address], [place], [address], [place] [facility] 10/13/2024 16:17:47 11/04/2024 text/html 59 yr old male presents to discuss mri results and neurosurgeon. Evangelist Campos APRN [address], [place], [address], [place] [facility] 11/04/2024 14:54:18 11/11/2024 text/html 59 yr old male presents for sinus pressure- he started a z pack yesterday. pt states sinus pressure,tenderness , dental pain and pressure behind eyes Evangelist Campos APRN [address], [place], [address], [place] [facility] 11/11/2024 16:12:21 02/24/2025 text/html 60 year old male who presents to the office today with concerns ofgout in right great toe- started on Thursday, has not gotten better, has tried epson salt, ibuprofen, ice, heathas had gout once before about 10-12 years ago Evangelist Campos, [employer] [address], [place], [address], [place] - [facility] 02/24/2025 10:07:11
[2025-05-04 13:08] VITALS: BP 139/96; PULSE 75; RESP 18; O2SAT 98; BMI 29.8
== END 2025-05-04 23:59 | disposition home or self-care (01) ==
LOC: SC.PAIN 10:55
PROVIDERS: PCP Nurse Practitioner Family; Visit Provider Nurse Practitioner Family
DX: M47.816 Spondylosis without myelopathy or radiculopathy, lumbar region (principal); M51.360 Other intervertebral disc degeneration, lumbar region with discogenic back pain only
CPT/HCPCS: 99212; G0463

== ENCOUNTER 2025-07-05 08:16 | Outpatient (POV) | payer BC, SELFPAY ==
--- NOTE | 2025-07-05 08:45 | EXP.PAIN.SOA ---
[facility] Disclaimer: The information contained in this section may have been updated after the patient was seen, as this information can be updated by other users. Medical History (Updated 07/05/25 @ 08:55 by Sylvia Holden APRN) HTN (hypertension), benign GERD (gastroesophageal reflux disease) Surgical History H/O sinus surgery H/O right knee surgery Family History Other Coronary artery disease Diabetes Hypertension Social History Smoking Status: Current every day smoker tobacco type: smokeless tobacco alcohol intake: current alcohol intake frequency: a few times a week substance use type: denies use current occupational status: other Travel in the last 8 weeks?: None household members: spouse and children housing: house current occupation: [employer] caffeine: Yes PM Subjective & Objective Subjective Subjective:: Patient is a pleasant 60-year-old male who presents today for worsening low back pain. Today he rates his pain 8 out of 10. Patient did previously have his first lumbar medial branch block L4-L5 L5-S1 bilaterally in February that did provide 80% relief in overall decreased his pain down to where it was much more manageable. He does state that this did really help however today he is having a little bit more pain in and around his hip that he had not noticed as significantly in the past. He states it will run into his groin. Patient does state that pain is interfering with his ability perform activities of daily living such as cooking and cleaning. He would like to see about additional injections to ease this down. He states he is having to alter his activity due to this. Patient is still using heat which he states helps along with his compounded cream and has continue conservative therapy of at home stretching exercise for longer than 12 weeks. His Roderick has been reviewed and is appropriate. Review of Systems: General: No recent weight changes, no fever, no sleep disturbances Respiratory: No cough, no shortness of air, no recurring pulmonary infections Cardiovascular/peripheral vascular: No chest pain, no palpitations, no edema, no shortness of breath Gastrointestinal: No new onset incontinence, normal bowel movements reported Genitourinary: No new onset incontinence Musculoskeletal: Low back pain, right hip, right groin Psychiatric: [Normal mood/affect] Neurological: [Denies weakness in extremities], [denies balance issues] Pain at rest (0-10 scale): 8 Objective Objective:: Physical Exam: General: Alert and oriented x3, no acute distress, pleasant and cooperative Lungs: Respirations even and unlabored, symmetrical chest expansion Eyes: PERRL Musculoskeletal: Flexion and extension of lumbar [spine] somewhat guarded secondary to pain, [antalgic gait noted] point tenderness along right SI with positive right Lester's, Pamela's, Gaenslen's, compression and distraction exam Neurological: Speech clear, no gross sensory deficit Has patient had previous pain injection?: No Conservative treatment options previously tried: Home exercise plan Length of treatment: Longer than 12 weeks Meds Home Medications and Allergies Home Medications ?Medication ?Instructions ?Recorded ?Confirmed ?Type lansoprazole 30 mg capsule,delayed 30 mg PO DAILY GERD 04/24/21 07/05/25 History release ramipril 5 mg capsule 5 mg PO DAILY bp #90 caps 05/09/21 07/05/25 Rx fluticasone propionate 50 1 spray intranasal QDAY #9.9 mL 08/07/21 07/05/25 Rx mcg/actuation nasal spray,suspension (Flonase Allergy Relief) New Prescriptions to Start Prescriptions: Allergies Allergy/AdvReac Type Severity Reaction Status Date / Time No Known Allergies Allergy Verified 04/23/22 10:59 Assessment and Plan *Assessment and plan (1) Degenerative disc disease, lumbar: Status: Acute Category: Medical Code(s): M51.369 - Other intervertebral disc degeneration, lumbar region without mention of lumbar back pain or lower extremity pain (2) Sacroiliitis: Status: Acute Category: Medical Code(s): M46.1 - Sacroiliitis, not elsewhere classified Plan Patient is experiencing worsening pain along the low back and right hip. They did have limited range of motion of the lumbar spine along with point tenderness along his right SI joint and a positive bilateral Lester's, Pamela's, Gaenslen's, compression and distraction exam. I did discuss with the patient that I do believe they would benefit from right SI injections. Risk and benefits were discussed with the patient and they would like to proceed forward with this option. Patient has tried and failed conservative therapy. Patient has been actively doing conservative treatment including oral medication, heat and ice, topicals, at home exercising and stretching for longer than 12 weeks. Patient is having to adjust their activity based off the increased pain resulting in activity modification. I do believe the patient would benefit from SI injection. If the patient does get significant relief following these injections we will see in the future if they would benefit from a second set with the possibility of SI fusion at a later date. Patient has had chronic low back pain for longer than 6 months. This will be a diagnostic injection with less than 1 mL solution to be injected. Patient will be scheduled for right SI injections under fluoroscopy. Patient has been instructed to contact the clinic with any concerns before the next appointment. Dr. Veliz has reviewed this note and agrees with this plan of care. This note was dictated using voice recognition software and make contain errors or omissions. All injections are used with Lidocaine or Bupivacaine and dexamethasone unless diagnostic in which no steroids were injected.
[2025-07-05 08:49] VITALS: BP 126/90; PULSE 80; RESP 14; O2SAT 98; BMI 29.8
== END 2025-07-05 23:59 | disposition home or self-care (01) ==
LOC: SC.PAIN 08:17
PROVIDERS: PCP Nurse Practitioner Family; Visit Provider Nurse Practitioner Family
DX: M51.360 Other intervertebral disc degeneration, lumbar region with discogenic back pain only (principal); M46.1 Sacroiliitis, not elsewhere classified
CPT/HCPCS: 99212; G0463

== ENCOUNTER 2025-08-15 08:47 | Day surgery (SDC) | payer BC, SELFPAY ==
[2025-08-15 09:02] VITALS: BP 117/79; BP 135/67; PULSE 107; PULSE 77; RESP 18; O2SAT 96; O2SAT 98; BMI 29.7
[2025-08-15] MEDS: BUPIVACAINE 0.25% 10ML INJ 25 MG IJ (09:06)
[2025-08-15] MEDS: LIDOCAINE 1% 5ML PF VIAL 5 ML (09:06)
[2025-08-15 09:17] VITALS: BP 131/74; PULSE 93; RESP 18; O2SAT 98
--- NOTE | 2025-08-15 09:21 | EXP.PAIN.PRO ---
Procedure Date: 08/15/25 Time: 08:50 Anesthesiologist:: Juan Woodall CRNA Complications:: None Pre-procedure Diagnosis:: Right sacroiliitis Post-procedure Diagnosis:: Same Indications for Procedure:: Patient is a pleasant 60-year-old male who comes our clinic today for right sacroiliac joint injection of local anesthetic for diagnostic purpose. Patient describes right low lumbar back pain. Right posterior hip pain. Difficulty transitioning from sitting to standing due to right posterior hip pain. He rates his pain 7/10. Procedure Details:: Procedure: Right sacroliliac joint injection under fluoroscopy Informed consent was obtained and the risk and benefits of the procedure were explained to the patient.~ The patient was taken to the procedure room and noninvasive monitors were placed including noninvasive blood pressure cuff and pulse oximeter.~ The patient was placed prone on the procedure table.~ The~ right hip was cleansed using Betadine as a cleansing solution.~ C-arm fluorosocpy was used to view the right SI joint.~ The skin and subcutaneous tissues were anesthetized using Lidocaine 1.5% and a 25-gauge needle.~ After this, a 22-gauge spinal needle was inserted under fluoroscopic guidance into the inferior aspect of the right SI joint.~ Omnipaque dye was injected and a good spread was seen throughout the joint.~ After this, approximately 5 mL of bupivacaine 0.25% was incrementally injected into the sacroiliac joint.~ The patient tolerated the procedure well with no complications.~ The patient was observed in the Pain Clinic, then discharged home neurologically intact.~ Plan and Disposition:: Patient was discharged without incident.
== END 2025-08-15 09:17 | disposition home or self-care (01) ==
PROVIDERS: PCP Nurse Practitioner Family; Visit Provider Nurse Anesthetist, Certified Registered
DX: M46.1 Sacroiliitis, not elsewhere classified (principal); K21.9 Gastro-esophageal reflux disease without esophagitis; I10 Essential (primary) hypertension; F17.210 Nicotine dependence, cigarettes, uncomplicated; Z79.899 Other long term (current) drug therapy
CPT/HCPCS: 64450; J0665; J2003

== ENCOUNTER 2025-10-17 11:16 | Day surgery (SDC) | payer BC, SELFPAY ==
[2025-10-17 11:23] VITALS: BP 132/93; PULSE 88; RESP 16; O2SAT 97; BMI 29.8
[2025-10-17 11:24] VITALS: BP 129/84; PULSE 84; RESP 18; O2SAT 95
[2025-10-17] MEDS: LIDOCAINE 1% 5ML PF VIAL 5 ML (11:24)
[2025-10-17] MEDS: DEXAMETHASONE 10MG/ML 1ML VIAL 10 MG (11:25)
[2025-10-17 11:26] VITALS: BP 129/84; PULSE 84; RESP 18; O2SAT 95
[2025-10-17 11:28] VITALS: BP 157/89; PULSE 85; RESP 16; O2SAT 97
--- NOTE | 2025-10-17 11:28 | P.PCN_ITS ---
Procedure Date: 10/17/25 Time: 11:20 Anesthesiologist:: Juan Woodall CRNA Complications:: None Pre-procedure Diagnosis:: Right sacroiliitis Post-procedure Diagnosis:: Same Indications for Procedure:: Patient is a pleasant 60-year-old male who comes our clinic today for right sacroiliac joint injection of cortisone and local anesthetic. Patient describes right low back pain. Right posterior hip pain. He describes the pain as constant, dull, aching. He reports difficulty with ambulation. Difficulty with sitting. Difficulty transitioning from sitting to standing due to the right posterior hip pain. He rates his pain 7/10. Procedure Details:: Procedure: Right sacroliliac joint injection under fluoroscopy Informed consent was obtained and the risk and benefits of the procedure were explained to the patient.~ The patient was taken to the procedure room and noninvasive monitors were placed including noninvasive blood pressure cuff and pulse oximeter.~ The patient was placed prone on the procedure table.~ The~ right hip was cleansed using Betadine as a cleansing solution.~ C-arm fluorosocpy was used to view the right SI joint.~ The skin and subcutaneous tissues were anesthetized using Lidocaine 1.5% and a 25-gauge needle.~ After this, a 22-gauge spinal needle was inserted under fluoroscopic guidance into the inferior aspect of the right SI joint.~ Omnipaque dye was injected and a good spread was seen throughout the joint.~ After this, approximately 5 mL of bupivacaine 0.25% and dexamethasone 10 mg mg was incrementally injected into the sacroiliac joint.~ The patient tolerated the procedure well with no compl ications.~ The patient was observed in the Pain Clinic, then discharged home neurologically intact.~ Plan and Disposition:: Patient was discharged without incident.
== END 2025-10-17 11:28 | disposition home or self-care (01) ==
PROVIDERS: PCP Nurse Practitioner Family; Visit Provider Nurse Anesthetist, Certified Registered
DX: M46.1 Sacroiliitis, not elsewhere classified (principal); K21.9 Gastro-esophageal reflux disease without esophagitis; I10 Essential (primary) hypertension; Z82.49 Family history of ischemic heart disease and other diseases of the circulatory system; F17.290 Nicotine dependence, other tobacco product, uncomplicated; Z79.899 Other long term (current) drug therapy
CPT/HCPCS: 20552; 77002; J1100; J2003